=== PATIENT | male | born 1995 | race Caucasian/White ===

== ENCOUNTER 2017-02-06 09:55 | Emergency (ER) | payer SELFPAY ==
[~2017-02-06] VITALS: Ht 167.6 cm; Wt 95.5 kg
[~2017-02-06 09:55] MED LIST: NO HOME MEDICATIONS
[2017-02-06 09:59] VITALS: BP 140/78; PULSE 69; TEMP 98.2
== END 2017-02-06 11:20 | disposition home or self-care (01) ==
LOC: COL.ER 09:55
DX: S93.401A Sprain of unspecified ligament of right ankle, initial encounter (principal); X50.0XXA Overexertion from strenuous movement or load, initial encounter